=== PATIENT | female | born 1985 | race Caucasian/White ===

== ENCOUNTER 2021-03-29 16:17 | Emergency (ER) | payer BC ==
[~2021-03-29] VITALS: Ht 175.3 cm; Wt 79.2 kg
[2021-03-29 17:07] LABS: BASO # 0.04 (0.02-0.10); EOS % 2.7 % (1.0-5.0); HEMATOCRIT 40.9 % (37.0-47.0); HEMOGLOBIN 13.5 g/dL (12.5-16.0); LYMPH# 2.16 (1.50-4.00); MEAN CELL VOLUME 93 fl (78-100); MEAN CORPUSCULAR HEMOGLOBIN 31 pg (27-31); MEAN CORPUSCULAR HGB CONC 33 g/dL (33-37); MEAN PLATELET VOLUME 10.9 fl (7.4-10.4); MONO # 0.44 (0.20-0.80); NEU # 4.48 (1.40-6.50); PLATELET COUNT 160 K/mm3 (130-400); RED BLOOD COUNT 4.41 M/mm3 (4.10-5.30); RED CELL DISTRIBUTION WIDTH 12.7 % (11.5-14.5); WHITE BLOOD COUNT 7.3 K/mm3 (4.8-10.8)
[2021-03-29 17:27] LABS: ALBUMIN 3.7 g/dL (3.5-5.0); POTASSIUM 3.7 mmol/L (3.5-5.1)
[2021-03-29 17:28] LABS: CALCIUM 9.4 mg/dL (8.3-10.5)
[2021-03-29 17:29] LABS: TOTAL PROTEIN 6.6 g/dL (6.4-8.3)
[2021-03-29 17:31] LABS: TOTAL BILIRUBIN 0.4 mg/dL (0.2-1.2)
[2021-03-29 18:27] VITALS: BP 122/76
== END 2021-03-29 18:28 | disposition home or self-care (01) ==
LOC: ED 16:17
PROVIDERS: Nurse Practitioner Family
DX: N94.6 Dysmenorrhea, unspecified (principal); N92.6 Irregular menstruation, unspecified

== ENCOUNTER → 2021-05-09 | Outpatient (CLI) | payer BC | LOC: RAD 09:58 | DX: N93.9 Abnormal uterine and vaginal bleeding, unspecified (principal) ==

== ENCOUNTER 2022-06-05 21:16 | Emergency (ER) | payer OTHER ==
[~2022-06-05] VITALS: Ht 175.3 cm; Wt 88.7 kg
[2022-06-05 21:39] LABS: BASO # 0.04 K/mm3 (0.02-0.10); EOS # 0.39 K/mm3 (0.04-0.40); EOS % 3.2 % (1.0-5.0); HEMATOCRIT 39.1 % (37.0-47.0); HEMOGLOBIN 13.3 g/dL (12.5-16.0); LYMPH# 2.79 K/mm3 (1.50-4.00); MEAN CELL VOLUME 90 fl (78-100); MEAN CORPUSCULAR HEMOGLOBIN 31 pg (27-31); MEAN CORPUSCULAR HGB CONC 34 g/dL (33-37); MEAN PLATELET VOLUME 10.9 fl (7.4-10.4); MONO # 0.87 K/mm3 (0.20-0.80); PLATELET COUNT 176 K/mm3 (130-400); RED BLOOD COUNT 4.34 M/mm3 (4.10-5.30); RED CELL DISTRIBUTION WIDTH 11.9 % (11.5-14.5); WHITE BLOOD COUNT 12.1 K/mm3 (4.8-10.8)
[2022-06-05 21:48] LABS: ALBUMIN 3.9 g/dL (3.5-5.0)
[2022-06-05 21:49] LABS: POTASSIUM 3.9 mmol/L (3.5-5.1)
[2022-06-05 21:50] LABS: CALCIUM 8.9 mg/dL (8.3-10.5)
[2022-06-05 21:51] LABS: TOTAL PROTEIN 7.1 g/dL (6.4-8.3)
[2022-06-05 21:53] LABS: TOTAL BILIRUBIN 0.4 mg/dL (0.2-1.2)
[2022-06-05 22:32] LABS: D-DIMER 4.4 mg/L FEU (0.15-0.50)
[2022-06-05] MEDS ORDERED: CYCLOBENZAPRINE10 M1 PO (22:59)
[2022-06-05 23:15] VITALS: BP 98/62
== END 2022-06-05 23:15 | disposition home or self-care (01) ==
LOC: ED 21:16
PROVIDERS: Nurse Practitioner
DX: M62.830 Muscle spasm of back (principal); Z28.310 Unvaccinated for COVID-19; Z20.822 Contact with and (suspected) exposure to COVID-19
CPT/HCPCS: J1885; J2360

== ENCOUNTER → 2023-05-09 | Outpatient (CLI) | payer OTHER ==
[~2023-05-09] MED LIST: CYCLOBENZAPRINE10 M1 PO
[2023-05-09 10:10] LABS: BASO # 0.04 K/mm3 (0.02-0.10); EOS # 0.31 K/mm3 (0.04-0.40); EOS % 3.4 % (1.0-5.0); HEMATOCRIT 40.7 % (37.0-47.0); HEMOGLOBIN 13.3 g/dL (12.5-16.0); LYMPH# 2.63 K/mm3 (1.50-4.00); MEAN CELL VOLUME 94 fl (78-100); MEAN CORPUSCULAR HEMOGLOBIN 31 pg (27-31); MEAN CORPUSCULAR HGB CONC 33 g/dL (33-37); MEAN PLATELET VOLUME 10.8 fl (7.4-10.4); MONO # 0.52 K/mm3 (0.20-0.80); NEU # 5.49 K/mm3 (1.40-6.50); PLATELET COUNT 181 K/mm3 (130-400); RED BLOOD COUNT 4.34 M/mm3 (4.10-5.30); RED CELL DISTRIBUTION WIDTH 12.5 % (11.5-14.5)
[2023-05-09 10:17] LABS: ALBUMIN 3.8 g/dL (3.5-5.0); POTASSIUM 3.3 mmol/L (3.5-5.1)
[2023-05-09 10:18] LABS: CALCIUM 8.9 mg/dL (8.3-10.5)
[2023-05-09 10:20] LABS: TOTAL PROTEIN 6.6 g/dL (6.4-8.3)
[2023-05-09 10:21] LABS: TOTAL BILIRUBIN 0.3 mg/dL (0.2-1.2)
[2023-05-09 10:40] LABS: D-DIMER 0.54 mg/L FEU (0.15-0.50)
== END ==
LOC: RAD 09:51
PROVIDERS: Nurse Practitioner Family
DX: I82.402 Acute embolism and thrombosis of unspecified deep veins of left lower extremity (principal); R53.81 Other malaise; R20.2 Paresthesia of skin